=== PATIENT | female | born 1970 | race Caucasian/White ===

== ENCOUNTER 2017-12-19 21:50 | Emergency (ER) | payer BC, OTHER ==
[~2017-12-19] VITALS: Ht 172.7 cm; Wt 63.5 kg
[~2017-12-19 21:50] MED LIST: CEPHALEXIN500 MG ORAL; KEFLEX500 MG ORAL; NKM; PRENATA CHEWAB1 EACH PO
--- NOTE | 2017-12-19 22:21 | Emergency Room Report ---
History of Present Illness General Chief Complaint: Lower Extremity Injury Source: Patient Present Illness HPI Is a 47-year-old female who has no significant past medical history. She presents with chief complaint of right calf pain. Onset was about a week ago. She was playing tennis and she felt a pop to the back of her calf. She return around to see very one actually kicked her. It hurt in the mid calf. She now has bruising and swelling down to her ankle area. She was talking with her doctor over the phone was sent in to rule out a DVT. No shortness of breath. No fever chills but no nausea no vomiting. No other injury. Pain Is 5 out of 10. Worse with walking and moving her ankle up and down. Allergies: Coded Allergies: No Known Allergies (Unverified , 10/06/13) Patient History Past Medical History: see triage record, old chart reviewed Past Surgical History: none Pertinent Family History: none Social History: Denies: smoking Last Menstrual Period: 11/28/2017 Now: No : 4 Para: 1 Immunizations: other Reviewed Nursing Documentation: PMH: Agreed; PSxH: Agreed Nursing Documentation-PMH Past Medical History: No Stated History Hx Cardiac Problems: No Hx Cancer: No Hx Gastrointestinal Problems: No Hx Neurological Problems: No Review of Systems Eye: Denies: eye pain, blurred vision ENT: Denies: ear pain, nose congestion, throat swelling Respiratory: Denies: cough, shortness of breath Cardiovascular: Denies: chest pain, palpitations Gastrointestinal: Denies: abdominal pain, diarrhea, nausea, vomiting Musculoskeletal: Reports: muscle pain; Denies: back pain, joint pain Skin: Denies: rash Neurological: Denies: headache, numbness Endocrine: Denies: increased thirst, increased urine Hematologic/Lymphatic: Denies: easy bruising All Other Systems: negative except mentioned in HPI Physical Exam Vital Signs Date Time Temp Pulse Resp B/P (MAP) Pulse Ox O2 Delivery O2 Flow Rate FiO2 12/19/17 21:58 97.9 71 16 109/67 97 Room Air vitals normal Sp02 EP Interpretation: reviewed, normal General Appearance: well appearing, no apparent distress, alert Head: normocephalic, atraumatic Eyes: bilateral eye PERRL, bilateral eye EOMI ENT: hearing grossly normal, normal pharynx Neck: full range of motion, supple, no meningismus Respiratory: chest non-tender, lungs clear, normal breath sounds Cardiovascular #1: regular rate, rhythm, no murmur Gastrointestinal: normal bowel sounds, non tender, no mass, no organomegaly, no bruit, non-distended Musculoskeletal: back normal, gait/station normal, normal range of motion, other - Right leg: She has tenderness over the inferior aspect of the gastrocnemius. There is mild edema. She has ecchymosis along the inner aspect of the medial malleolus and foot. Dorsalis pedis pulses 2+. Achilles tendon is intact. Movement with dorsiflexion and plantar flexion elicit pain. Neurologic: alert, oriented x3 Psychiatric: mood/affect normal Skin: warm/dry Medical Decision Making Diagnostic Impression: Primary Impression: Gastrocnemius muscle tear Qualified Codes: S86.111A - Strain of other muscle(s) and tendon(s) of posterior muscle group at lower leg level, right leg, initial encounter ER Course This is a 47-year-old female presents with clinically a gastrocnemius muscle tear. Clinically no evidence of DVT. My bedside ultrasound show good compressibility of the vein of her lower extremity. CT scan done but unfortunately there was initially was sending the images to radiology. I see no evidence of any fracture. Patient will be discharged. I will give her results after we get it back. CT/MRI/US Diagnostic Results CT/MRI/US Diagnostic Results : Imaging Test Ordered: CT lower extremity Impression read by radiologist. Last Vital Signs Date Time Temp Pulse Resp B/P (MAP) Pulse Ox O2 Delivery O2 Flow Rate FiO2 12/19/17 21:58 97.9 71 16 109/67 97 Room Air Status: improved Disposition: HOME, SELF-CARE Condition: Stable Scripts Ibuprofen* (MOTRIN*) 600 Mg Tablet 600 MG ORAL THREE TIMES A DAY, #30 TAB 0 Refills Prov: Dima Hammond MD 12/19/17 Additional Instructions: Elevate leg. Ice pack to the area. Follow-up with your doctor in a week. You may need an MRI. Return if symptom worsen. No strenuous activity. Dima Hammond MD Dec 19, 2017 22:21
[2017-12-19] MEDS ORDERED: IBUPROFEN600 MG ORAL (23:55)
[2017-12-20 00:05] VITALS: BP 105/64
--- NOTE | 2017-12-20 08:54 | Diagnostic Imaging Report ---
Indication: Injured right ankle playing tennis 5 days ago, pain and swelling in the right ankle Technique: No IV contrast utilized, per trauma protocol. Noncontrast spiral acquisitions obtained through the right tibia and fibula. Multiplanar reconstructions were generated. Total dose length product 797 mGycm. CTDIvol(s) 15 mGy. Radiation dose was minimized using automated exposure control Comparison: none Findings: . Questionable slight cortical defect in the anterior distal fibula, best seen on axial bone images 137 through 139. No other acute fractures. No dislocations. The joint spaces are preserved. There is edema versus less likely hematoma in the skin and subcutaneous fat circumferentially around the ankle. More cephalad, this is seen surrounding the muscular fascia, particularly medially as well as seen between the muscular compartments in the mid leg. No focal drainable collection demonstrated. No evidence of significant ankle joint effusion or hemarthrosis Impression: Doubt but cannot completely exclude incomplete distal fibular fracture Evidence of soft tissue edema or hematoma, as described This essentially agrees with the [facility] preliminary report The CT scanner at is accredited by the [employer] [place] [employer] and the scans are performed using protocols designed to limit radiation exposure to as low as reasonably achievable to attain images of sufficient resolution adequate for diagnostic evaluation.
== END 2017-12-20 00:05 | disposition home or self-care (01) ==
LOC: EMR 22:25
DX: S86.111A Strain of other muscle(s) and tendon(s) of posterior muscle group at lower leg level, right leg, initial encounter (principal); X50.9XXA Other and unspecified overexertion or strenuous movements or postures, initial encounter; Y93.73 Activity, racquet and hand sports; Y92.9 Unspecified place or not applicable
CPT/HCPCS: 99284